=== PATIENT | female | born 1995 | race Caucasian/White ===

== ENCOUNTER 2017-06-08 23:31 | Emergency (ER) | payer OTHER ==
[~2017-06-08] VITALS: Ht 154.9 cm; Wt 101.8 kg
[2017-06-08 23:36] VITALS: TEMP 36.9; Ht 154.9 cm; Wt 101.8 kg
[2017-06-09] MEDS ORDERED: KETOROLAC TROMETHAMINE 30 MG/ML VIAL IV STA (00:04)
[2017-06-09] MEDS ORDERED: SODIUM CHLORIDE 0.9% 1000ML 1,000 ML IV STA (00:04)
[2017-06-09] MEDS ORDERED: ONDANSETRON INJ 2 MG/ML 2 ML VIAL IV STA (00:04)
--- NOTE | 2017-06-09 00:05 | EMERGENCY ROOM VISIT NOTE ---
History Report prepared by Sapphire: Kaushal Dolan Under the Supervision of: Dr. Bradley Gallego M.D. First contact with patient: 23:55 Chief Complaint: ABDOMINAL PAIN Stated Complaint: STOMACH PAIN,SIDE AND BACK PAIN,CHILLS History of Present Illness The patient is a 21 year old female who presents to the Emergency Room with complaints of constant abdominal pain beginning a few days ago. The patient states that she is also experiencing back pain, bilateral flank pain, vomiting x2, nausea, and an increased frequency of urination. She notes that her flank pain is worse on the right side. She denies any diarrhea and leg edema. She reports that she is taking control but no other medication. The patient states that she has had a UTI before, but notes that her current symptoms do not feel similar. She denies any history of kidney stones, ovarian cysts, and recent trauma. She notes that her period just ended yesterday. Source of History: patient Onset: a few days ago Position: abdomen Timing: constant Associated Symptoms: + nausea, + vomiting, + back pain, + urinary symptoms ( increased frequency), No diarrhea Note: She also complains of bilateral flank pain that is worse on the right side. She denies any leg edema. Review of Systems See HPI for pertinent positives & negatives. A total of 10 systems reviewed and were otherwise negative. Past Medical & Surgical Medical Problems: (1) UTI (urinary tract infection) Family History No pertinent family history stated. Social History Smoking Status: Never Smoker Marital Status: single Occupation Status: student Current/Historical Medications Scheduled Control Pills ( Control Pills), 1 TAB PO DAILY Allergies Coded Allergies: No Known Allergies (Unverified , 06/09/17) Physical Exam Vital Signs Date Time Temp Pulse Resp B/P (MAP) Pulse Ox O2 Delivery O2 Flow Rate FiO2 06/09/17 01:44 90 18 131/71 99 06/08/17 23:36 36.9 101 18 152/90 100 Room Air Physical Exam GENERAL: Patient is uncomfortable appearing and in mild distress. HEENT: No acute trauma, normocephalic atraumatic, mucous membranes moist, no nasal congestion, no scleral icterus. NECK: No stridor, no adenopathy, no meningismus, trachea is midline. LUNGS: No dyspnea. Clear to auscultation and equal bilaterally. No wheeze, no rhonchi. HEART: Regular rate and rhythm. No murmurs, rubs, gallops appreciated. ABDOMEN: Soft, nontender, bowel sounds positive, no masses appreciated, no peritonitis. BACK: No midline tenderness, mild bilateral CVA tenderness to palpation. EXTREMITIES: Normal motion all extremities, no cyanosis, no edema. NEUROLOGIC: Alert and oriented, no acute motor or sensory deficits, no focal weakness, cranial nerves grossly intact. SKIN: No rash, no jaundice, no diaphoresis. Medical Decision & Procedures Laboratory Results 06/09/17 00:10 Red Blood Count 4.92, Mean Corpuscular Volume 72.4, Mean Corpuscular Hemoglobin 22.8, Mean Corpuscular Hemoglobin Concent 31.5, Mean Platelet Volume 9.4, Neutrophils (%) (Auto) 49.2, Lymphocytes (%) (Auto) 39.9, Monocytes (%) (Auto) 7.7, Eosinophils (%) (Auto) 2.8, Basophils (%) (Auto) 0.2, Neutrophils # (Auto) 4.76, Lymphocytes # (Auto) 3.86, Monocytes # (Auto) 0.74, Eosinophils # (Auto) 0.27, Basophils # (Auto) 0.02 06/09/17 00:10 Test 06/08/17 23:48 06/08/17 23:52 06/09/17 00:10 Urine Color YELLOW Urine Appearance CLEAR (CLEAR) Urine pH 7.0 (4.5-7.5) Urine Specific [place] 1.003 (1.000-1.030) Urine Protein NEG (NEG) Urine Glucose (UA) NEG (NEG) Urine Ketones NEG (NEG) Urine Occult Blood TRACE (NEG) Urine Nitrite NEG (NEG) Urine Bilirubin NEG (NEG) Urine Urobilinogen NEG (NEG) Urine Leukocyte Esterase NEG (NEG) Urine WBC (Auto) 0 /hpf (0-5) Urine RBC (Auto) 0-4 /hpf (0-4) Urine Hyaline Casts (Auto) 0 /lpf (0-5) Urine Epithelial Cells (Auto) 0-5 /lpf (0-5) Urine Bacteria (Auto) NEG (NEG) Urine Test NEG (NEG) White Blood Count 9.67 K/uL (4.8-10.8) Red Blood Count 4.92 M/uL (4.2-5.4) Hemoglobin 11.2 g/dL (12.0-16.0) Hematocrit 35.6 % (37-47) Mean Corpuscular Volume 72.4 fL (80-100) Mean Corpuscular Hemoglobin 22.8 pg (25-34) Mean Corpuscular Hemoglobin Concent 31.5 g/dl (32-36) Platelet Count 415 K/uL (130-400) Mean Platelet Volume 9.4 fL (7.4-10.4) Neutrophils (%) (Auto) 49.2 % Lymphocytes (%) (Auto) 39.9 % Monocytes (%) (Auto) 7.7 % Eosinophils (%) (Auto) 2.8 % Basophils (%) (Auto) 0.2 % Neutrophils # (Auto) 4.76 K/uL (1.4-6.5) Lymphocytes # (Auto) 3.86 K/uL (1.2-3.4) Monocytes # (Auto) 0.74 K/uL (0.11-0.59) Eosinophils # (Auto) 0.27 K/uL (0-0.5) Basophils # (Auto) 0.02 K/uL (0-0.2) RDW Standard Deviation 41.4 fL (36.4-46.3) RDW Coefficient of Variation 15.5 % (11.5-14.5) Immature Granulocyte % (Auto) 0.2 % Immature Granulocyte # (Auto) 0.02 K/uL (0.00-0.02) Anion Gap 8.0 mmol/L (3-11) Est Creatinine Clear Calc Drug Dose 125.0 ml/min Estimated GFR () 126.0 Estimated GFR (Non- 108.7 BUN/Creatinine Ratio 16.0 (10-20) Calcium Level 9.3 mg/dl (8.5-10.1) Total Bilirubin 0.2 mg/dl (0.2-1) Direct Bilirubin < 0.1 mg/dl (0-0.2) Aspartate Amino Transf (AST/SGOT) 26 U/L (15-37) Alanine Aminotransferase (ALT/SGPT) 32 U/L (12-78) Alkaline Phosphatase 62 U/L (45-117) Total Protein 8.5 gm/dl (6.4-8.2) Albumin 3.1 gm/dl (3.4-5.0) Lipase 184 U/L (73-393) Laboratory results as reviewed by me. Medications Administered Medications (Trade) Dose Ordered Sig/Libia Route Start Time Stop Time Status Last Admin Dose Admin Sodium Chloride 1,000 ml @ 999 mls/hr Q1H1M STAT IV 06/09/17 00:04 06/09/17 01:04 DC 06/09/17 00:18 999 MLS/HR Ketorolac Tromethamine (Toradol Inj) 30 mg NOW STAT IV 06/09/17 00:04 06/09/17 00:05 DC 06/09/17 00:17 30 MG Ondansetron HCl (Zofran Inj) 4 mg NOW STAT IV 06/09/17 00:04 06/09/17 00:05 DC 06/09/17 00:17 4 MG ED Course 2358: The patient was evaluated in room B2. A complete history and physical exam was performed. 0122: Reevaluated the patient. She is feeling better. She would like to go home and see how she is feeling over the next 24 hours. We discussed that this might still be appendicitis but will hold on CT after shared decision making. I advised her to start taking a multivitamin with iron. She has a followup appointment already scheduled. We discussed symptoms that would require an emergent return. She verbalized understanding and agreement. The patient is ready for discharge. Medical Decision Differential: Appendicitis, , PUD/Gastritis, Biliary Pathology, UTI, Pyelonephritis, Renal Colic, amongst other pathologies entertained. 21 yr old female arrives with complaint of bilateral abdominal pain radiating to flanks. Exam is benign and she is in no significant distress, even smiling/ laughing. No clear reason for frequent uop as she has clear urine. Not hyperglycemia. Labs benign. No fevers. With such soft abdomen, benign labs, and looking well I feel that risks ct outweigh benefits at this time for which she agrees. This may all be related to menstrual cramping but they will monitor closely at home. I advised multivitamin with iron for supplementation and she has known chronic anemia that she is not on anything for. She will be see second class welder for inflammatory issues and we even discussed taking Vit D supplementation as well if not in multivitamin. She is well appearing nand in no distress at time of dc and understands symptoms requiring RTED. Medication Reconcilliation Current Medication List: was personally reviewed by me Blood Pressure Screening Patient's blood pressure: Elevated blood pressure Blood pressure disposition: Referred to PCP Impression Primary Impression: Bilateral lower abdominal pain Additional Impression: Anemia Scribe Attestation The scribe's documentation has been prepared under my direction and personally reviewed by me in its entirety. I confirm that the note above accurately reflects all work, treatment, procedures, and medical decision making performed by me. Departure Information Dispostion Home / Self-Care Referrals Bharti Schulte M.D. (PCP) Forms HOME CARE DOCUMENTATION FORM, IMPORTANT VISIT INFORMATION Patient Instructions Abdominal Pain - [facility], My [facility] Health Problem Qualifiers
[2017-06-09] MEDS ORDERED: BCPILLS PO (00:20)
[2017-06-09 00:24] LABS: BASO % 0.2 %; BASO ABS # 0.02 K/uL (0-0.2); EOS % 2.8 %; EOS ABS # 0.27 K/uL (0-0.5); HEMATOCRIT 35.6 % (37-47); HEMOGLOBIN 11.2 g/dL (12.0-16.0); IG# 0.02 K/uL (0.00-0.02); LYMPH % 39.9 %; LYMPH ABS # 3.86 K/uL (1.2-3.4); MEAN CELL VOLUME 72.4 fL (80-100); MEAN CORPUSCULAR HEMOGLOBIN 22.8 pg (25-34); MEAN CORPUSCULAR HGB CONC 31.5 g/dl (32-36); MEAN PLATELET VOLUME 9.4 fL (7.4-10.4); MONO % 7.7 %; MONO ABS # 0.74 K/uL (0.11-0.59); NEUT % 49.2 %; NEUT ABS # 4.76 K/uL (1.4-6.5); PLATELET COUNT 415 K/uL (130-400); RED CELL DISTRIBUTION WIDTH CV 15.5 % (11.5-14.5); RED CELL DISTRIBUTION WIDTH SD 41.4 fL (36.4-46.3); WHITE BLOOD COUNT 9.67 K/uL (4.8-10.8)
[2017-06-09 00:46] LABS: ALBUMIN 3.1 gm/dl (3.4-5.0); ALT/SGPT 32 U/L (12-78); AST/SGOT 26 U/L (15-37); BLOOD UREA NITROGEN 12 mg/dl (7-18); CALCIUM 9.3 mg/dl (8.5-10.1); CARBON DIOXIDE 26 mmol/L (21-32); CREATININE 0.78 mg/dl (0.60-1.20); GLUCOSE 97 mg/dl (70-99); LIPASE 184 U/L (73-393); POTASSIUM 3.6 mmol/L (3.5-5.1); SODIUM 139 mmol/L (136-145)
[2017-06-09 00:50] LABS: ALKALINE PHOSPHATASE 62 U/L (45-117); TOTAL PROTEIN 8.5 gm/dl (6.4-8.2)
[2017-06-09 01:44] VITALS: BP 131/71; PULSE 90; O2SAT 99
== END 2017-06-09 01:44 | disposition home or self-care (01) ==
LOC: C.EDB 23:33
DX: R10.32 Left lower quadrant pain (principal); R10.31 Right lower quadrant pain; D64.9 Anemia, unspecified

== ENCOUNTER 2019-05-04 18:57 | Inpatient (IN) ==
[2019-05-04] MEDS ORDERED: OXYTOCIN 30 UNITS/500 ML BAG IV PRN (20:06)
--- NOTE | 2019-05-04 20:11 | History & Physical Report ---
Date of Service May 04, 2019 Assessment & Plan (1) Group B streptococcal carriage complicating : will treat with pcn (2) SROM (spontaneous rupture of membranes): Starting to contract so will expectantly managed for now. Pitocin if indicated. epidural on demand. Anticipate . History of Present Illness Chief Complaint: lof Primary Care Provider: Bharti Schulte MD Patient is a 23yof, with iup at 40 2/7 weeks by first trimester ultrasound for unknown lmp who presents to labor and delivery c/o gush of fluid, clear, at 5:30pm. Has been having some contractions. no vb. +fm. complicated by anemia. H/H at first visit . Was taking a gummi pnv then at 28 week v isit was 8.2/27.6. Was advised to take iron but it made her really constipated and nauseated, so then she switched over to flintstones for the last couple of months. Unfortunately did not have any f/u cbc or real workup. Initial indicies appear to be iron deficiency. h/h on 03/22 was 9.4/31.0. Maternal obesity. 32 week ultrasound 85% efw. labs--A+/ab-/ri/rprnr/hepb-/hiv-/gc/ct-/afp neg/ gbs positive/ 16 week gtt 118/ 28 week gtt 137/ 2 hr gtt nl Allergies Allergy/AdvReac Type Severity Reaction Status Date / Time No Known Drug Allergies Allergy Verified 05/03/19 13:04 Home Medications Home Medications Medication Instructions Recorded Confirmed Type PNV cmb#95-ferrous fumarate-FA 28 tab PO DAILY 05/04/19 05/04/19 History [] Patient History Medical History (Updated 05/04/19 @ 20:21 by Gill Pastor MD, FACOG) Acute hemiparesis resolved Anemia (Chronic) Elevated high sensitivity C-reactive protein Hx of concussion Lateral femoral cutaneous neuropathy Thyromegaly Surgical History (Updated 12/13/18 @ 11:51 by Eugenio López) H/O wisdom tooth extraction No pertinent past surgical history S/P ear surgery Family History (Updated 11/30/18 @ 07:12 by Adriana Sanchez) Other Adopted Social History Preferred Language: German Feels Safe at Home: Yes Smoking Status: Never smoker OB History g1--present 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
[2019-05-04 20:29] LABS: Hematocrit (blood only) 33.9 % (37-47); Hemoglobin 10.3 g/dL (12.0-16.0); Mean Corpuscular Hemoglobin 22.3 pg (25-34); Mean Corpuscular Volume 73.5 fL (80-100); Mean Platelet Volume 10.4 fL (7.4-10.4); Platelet Count 286 K/uL (130-400); RDW Coefficient of Variation 18.1 % (11.5-14.5); RDW Standard Deviation 48.8 fL (36.4-46.3); Red Blood Count 4.61 M/uL (4.2-5.4); White Blood Count 12.64 K/uL (4.8-10.8)
[2019-05-04] MEDS ORDERED: PENICILLIN G POTASSIUM 6 MU in DEXTROSE 5% 250 ML IV ONE (20:30)
[2019-05-04] MEDS: LACTATED RINGER'S 1,000 ML IV PRN (20:49)
--- NOTE | 2019-05-04 21:33 | Anesthesiology Consultation ---
Date of Service May 04, 2019 Assessment & Plan (1) Encounter for pre-operative examination: Chart Review Chart Review: Patient NOT seen in Pre Admission Testing and Acceptable Risk for Labor Epidural Consults Requested none ASA ASA3 Proposed Anesthesia Anesthesia Type: Labor Epidural Risk / Benefits Reviewed With: PT / POA / Parent / Guardian, Accepts Plan and Informed Consent Obtained History Height/Weight Height: 5 ft 2 in Weight: 112.945 kg Allergies Allergy/AdvReac Type Severity Reaction Status Date / Time No Known Drug Allergies Allergy Verified 05/03/19 13:04 Medications Home Medications Medication Instructions Recorded Confirmed Last Taken PNV cmb#95-ferrous fumarate-FA 28 tab PO DAILY 05/04/19 05/04/19 05/03/19 11:00 [] Active Medications Generic Name Dose Route Start Last Admin Trade Name Freq PRN Reason Stop Dose Admin Lactated Ringer's 1,000 mls @ 125 mls/hr 05/04/19 20:06 05/04/19 22:15 Lr IV 05/06/19 20:05 999 mls/hr .Q8H PRN Infusion L&D Protocol Protocol NPO Date Last Intake of Fluids: 05/04/19 Time Last Intake of Fluids: 21:27 Date Last Intake of Solids: 05/04/19 Time Last Intake of Solids: 15:30 Past Medical History Medical History Acute hemiparesis resolved Anemia (Chronic) Elevated high sensitivity C-reactive protein Hx of concussion Lateral femoral cutaneous neuropathy Thyromegaly Exercise / Class Metabolic Activity II 4-5 Yardwork/Stairs/Walk up hill Negative for chest pain or shortness of breath. Past Family History Family History Other Adopted Past Surgical History Surgical History H/O wisdom tooth extraction No pertinent past surgical history S/P ear surgery Past Anesthesia History No Hx of Anesthesia Complications and No Family Hx of Anesthesia Complications History of PONV No Hx of PONV and Hx of Motion Sickness Social History Smoking Status: Never smoker Hx Alcohol Use: No Hx Substance Use: No substance use type: does not use Review of Systems Patient denies history of abnormal bleeding or bleeding disorder. Patient denies active use of anticoagulants other than low dose aspirin. Hx of pinching sciatic nerve on right with temporary hemiparesis. Still gets numbness of the right leg. History of scoliosis Physical Exam Vital Signs Last Vital Signs Temp 36.9 C 05/04/19 20:53 Pulse 88 05/04/19 21:05 Resp 18 05/04/19 20:53 BP 139/87 05/04/19 21:05 Constitutional + morbidly obese ENMT Mouth: no TMJ abnormality and oral opening not small Thyromental Distance: > or= 3.5 Finger Breadths Mallampati Class: II Neck normal visual inspection; neck extension not limited Respiratory normal respiratory effort Auscultation: lungs clear to auscultation bilaterally Cardiovascular Rate/Rhythm: regular rate and regular rhythm Heart Sounds: no murmur Neurologic moves all extremities Motor/Sensory: no sensory deficit Psychiatric Orientation: alert and oriented x 3 Testing Laboratory Results 05/04/19 20:19
[2019-05-04 21:49] LABS: Mean Corpuscular Hgb Conc 30.4 g/dL (32-36)
[2019-05-04] MEDS ORDERED: fentaNYL citrate 100 MCG/2 ML VIAL ONE (22:10)
[2019-05-04] MEDS ORDERED: BUPIVACAINE 0.25% 30 ML VIAL ONE (22:10)
[2019-05-04] MEDS ORDERED: ePHEDrine sulfate 50 MG/ML AMP ONE (22:10)
[2019-05-04] MEDS ORDERED: fentaNYL 2MCG/ML ROPIV 1.25MG/ML 100 ML BAG EPI ONE (22:11)
[2019-05-04] MEDS ORDERED: NALOXONE HCL 0.4 MG/1 ML VIAL/CARP IV PRN (22:29)
[2019-05-04] MEDS ORDERED: ONDANSETRON INJ 2 MG/ML 2 ML VIAL IV PRN (22:29)
[2019-05-04] MEDS ORDERED: DiphenhydrAMINE HCL 50 MG/ML VIAL IV PRN (22:29)
[2019-05-04] MEDS ORDERED: NALOXONE HCL 1 MG in SODIUM CHLORIDE 0.9% 1000ML 1,000 ML IV PRN (22:29)
[2019-05-04] MEDS ORDERED: ePHEDrine sulfate 50 MG/ML AMP IV PRN (22:29)
[2019-05-04] MEDS ORDERED: fentaNYL 2MCG/ML ROPIV 1.25MG/ML 100 ML BAG EPI PRN (22:29)
[2019-05-04] MEDS ORDERED: NALBUPHINE HCL INJ 10 MG/ML AMP IV PRN (22:29)
--- NOTE | 2019-05-05 00:12 | Labor Progress Brief Note ---
Date of Service May 05, 2019 Subjective comfortable after epidural Assessment & Plan (1) SROM (spontaneous rupture of membranes): continue current management. fetus category one. Physical Exam Constitutional: WD/WN, vitals as above Psychiatric: A+Ox3, euthymic affect Genitourinary: cx--5/100/-2 toco--q3-5min efm--130s with mod variability, accels present , no decels Results & Data Vital Signs (Past 12 Hours) Vital Signs Temp Pulse Resp BP Pulse Ox 05/05/19 00:07 93 H 124/60 05/05/19 00:05 90 98 05/05/19 00:01 90 129/62 05/05/19 00:00 82 99 05/04/19 23:56 86 132/61 05/04/19 23:55 104 H 99 05/04/19 23:50 86 130/60 100 05/04/19 23:46 95 H 130/60 05/04/19 23:45 90 100 05/04/19 23:40 94 H 116/57 L 100 05/04/19 23:35 101 H 112/56 L 99 05/04/19 23:34 18 05/04/19 23:32 100 H 133/62 05/04/19 23:31 16 05/04/19 23:30 87 99 05/04/19 23:25 109 H 151/67 H 98 05/04/19 23:24 18 05/04/19 23:22 94 H 18 161/74 H 05/04/19 23:20 107 H 16 156/75 H 99 05/04/19 23:18 112 H 16 153/75 H 05/04/19 23:16 113 H 18 152/72 H 05/04/19 23:15 101 H 98 05/04/19 23:14 101 H 18 151/83 H 05/04/19 23:13 102 H 149/83 H 05/04/19 23:12 16 05/04/19 23:10 98 H 16 142/72 H 98 05/04/19 23:08 97 H 143/74 H 05/04/19 23:06 107 H 86 L 05/04/19 23:05 108 H 16 146/75 H 97 05/04/19 23:00 86 100 05/04/19 22:55 96 H 99 05/04/19 22:50 97 H 99 05/04/19 22:45 93 H 100 05/04/19 22:40 93 H 100 05/04/19 22:35 96 H 100 05/04/19 22:30 91 H 99 05/04/19 22:15 37.2 C 05/04/19 21:05 88 139/87 05/04/19 20:53 36.9 C 18
[2019-05-05] MEDS: CALCIUM CARBONATE 500 MG CHEWABLE TAB PO PRN ×2 (00:30→04:15)
[2019-05-05] MEDS: PENICILLIN G POTASSIUM 3 MU in DEXTROSE 5% 100 ML IV PRN ×2 (00:50→04:55)
--- NOTE | 2019-05-05 02:31 | Labor Progress Brief Note ---
Date of Service May 05, 2019 Subjective comfortable Assessment & Plan (1) SROM (spontaneous rupture of membranes): continue expectant management. fetus category one. (2) Group B streptococcal carriage complicating : has received two doses Physical Exam Constitutional: WD/WN, vitals as above Psychiatric: A+Ox3, euthymic affect Genitourinary: cx--7/100/-1, forebag ruptured toco-q 2-4 min efm--130s with mod variability, small accels, no decels Results & Data Vital Signs (Past 12 Hours) Vital Signs Temp Pulse Resp BP Pulse Ox 05/05/19 02:24 104 H 99 05/05/19 02:22 89 147/77 H 05/05/19 02:19 105 H 98 05/05/19 02:15 104 H 146/104 H 05/05/19 02:14 104 H 97 05/05/19 02:09 94 H 98 05/05/19 02:04 105 H 97 05/05/19 02:00 36.9 C 98 H 18 139/94 05/05/19 01:59 102 H 98 05/05/19 01:54 102 H 98 05/05/19 01:49 108 H 97 05/05/19 01:47 130 H 142/98 H 05/05/19 01:44 143 H 98 05/05/19 01:39 91 H 99 05/05/19 01:34 124 H 98 05/05/19 01:32 118 H 146/72 H 05/05/19 01:30 20 05/05/19 01:29 90 98 05/05/19 01:24 94 H 98 05/05/19 01:19 119 H 99 05/05/19 01:16 92 H 128/69 05/05/19 01:14 96 H 98 05/05/19 01:09 86 98 05/05/19 01:04 102 H 100 05/05/19 01:02 92 H 134/69 05/05/19 01:00 16 05/05/19 00:59 86 99 05/05/19 00:54 86 99 05/05/19 00:49 87 99 05/05/19 00:47 88 131/70 05/05/19 00:44 93 H 99 05/05/19 00:39 99 H 99 05/05/19 00:34 110 H 97 05/05/19 00:32 106 H 129/71 05/05/19 00:30 18 05/05/19 00:29 118 H 98 05/05/19 00:24 93 H 99 05/05/19 00:19 97 H 99 05/05/19 00:15 36.4 C L 93 H 146/79 H 05/05/19 00:11 96 H 148/76 H 05/05/19 00:07 93 H 124/60 05/05/19 00:05 90 98 05/05/19 00:01 90 129/62 05/05/19 00:00 82 16 99 05/04/19 23:56 86 132/61 05/04/19 23:55 104 H 18 99 05/04/19 23:50 86 18 130/60 100 05/04/19 23:46 95 H 18 130/60 05/04/19 23:45 90 100 05/04/19 23:40 94 H 16 116/57 L 100 05/04/19 23:35 101 H 112/56 L 99 05/04/19 23:34 18 05/04/19 23:32 100 H 133/62 05/04/19 23:31 16 05/04/19 23:30 87 99 05/04/19 23:25 109 H 151/67 H 98 05/04/19 23:24 18 05/04/19 23:22 94 H 18 161/74 H 05/04/19 23:20 107 H 16 156/75 H 99 05/04/19 23:18 112 H 16 153/75 H 05/04/19 23:16 113 H 18 152/72 H 05/04/19 23:15 101 H 98 05/04/19 23:14 101 H 18 151/83 H 05/04/19 23:13 102 H 149/83 H 05/04/19 23:12 16 05/04/19 23:10 98 H 16 142/72 H 98 05/04/19 23:08 97 H 143/74 H 05/04/19 23:06 107 H 86 L 05/04/19 23:05 108 H 16 146/75 H 97 05/04/19 23:00 86 100 05/04/19 22:55 96 H 99 05/04/19 22:50 97 H 99 05/04/19 22:45 93 H 100 05/04/19 22:40 93 H 100 05/04/19 22:35 96 H 100 05/04/19 22:30 91 H 99 05/04/19 22:15 37.2 C 05/04/19 21:05 88 139/87 05/04/19 20:53 36.9 C 18
[2019-05-05] MEDS: LACTATED RINGER'S 1,000 ML IV PRN (03:21)
--- NOTE | 2019-05-05 05:04 | Labor Progress Brief Note ---
Date of Service May 05, 2019 Subjective comfortable Assessment & Plan (1) SROM (spontaneous rupture of membranes): fetus category one. making good progress. Physical Exam Constitutional: WD/WN, vitals as above Psychiatric: A+Ox3, euthymic affect Genitourinary: cx--rim/100/0 toco--q2-4min efm--150s with mod variability, small accels, no decels Results & Data Vital Signs (Past 12 Hours) Vital Signs Temp Pulse Resp BP Pulse Ox 05/05/19 05:00 125 H 134/67 05/05/19 04:59 140 H 98 05/05/19 04:54 123 H 96 05/05/19 04:49 105 H 96 05/05/19 04:46 104 H 129/61 05/05/19 04:44 113 H 96 05/05/19 04:39 103 H 95 05/05/19 04:34 110 H 96 05/05/19 04:30 108 H 18 136/72 05/05/19 04:29 98 H 97 05/05/19 04:24 107 H 98 05/05/19 04:20 117 H 141/77 H 05/05/19 04:19 110 H 98 05/05/19 04:17 104 H 159/89 H 05/05/19 04:15 37.9 C H 05/05/19 04:14 108 H 98 05/05/19 04:09 101 H 97 05/05/19 04:07 106 H 153/85 H 05/05/19 04:04 102 H 97 05/05/19 04:01 101 H 168/77 H 05/05/19 04:00 18 05/05/19 03:59 98 H 97 05/05/19 03:54 110 H 96 05/05/19 03:49 112 H 97 05/05/19 03:45 103 H 143/75 H 05/05/19 03:44 109 H 97 05/05/19 03:39 100 H 96 05/05/19 03:34 98 H 96 05/05/19 03:31 97 H 140/72 05/05/19 03:30 16 05/05/19 03:29 98 H 97 05/05/19 03:24 107 H 98 05/05/19 03:19 115 H 96 05/05/19 03:16 97 H 143/75 H 05/05/19 03:14 110 H 97 05/05/19 03:09 91 H 97 05/05/19 03:04 93 H 97 05/05/19 03:00 92 H 16 148/81 H 05/05/19 02:59 98 H 97 05/05/19 02:54 96 H 97 05/05/19 02:49 93 H 98 05/05/19 02:46 99 H 139/79 05/05/19 02:44 111 H 98 05/05/19 02:39 107 H 98 05/05/19 02:34 125 H 100 05/05/19 02:32 98 H 141/79 H 05/05/19 02:30 18 05/05/19 02:29 114 H 98 05/05/19 02:24 104 H 99 05/05/19 02:22 89 147/77 H 05/05/19 02:19 105 H 98 05/05/19 02:15 104 H 146/104 H 05/05/19 02:14 104 H 97 05/05/19 02:09 94 H 98 05/05/19 02:04 105 H 97 05/05/19 02:00 36.9 C 98 H 18 139/94 05/05/19 01:59 102 H 98 05/05/19 01:54 102 H 98 05/05/19 01:49 108 H 97 05/05/19 01:47 130 H 142/98 H 05/05/19 01:44 143 H 98 05/05/19 01:39 91 H 99 05/05/19 01:34 124 H 98 05/05/19 01:32 118 H 146/72 H 05/05/19 01:30 20 05/05/19 01:29 90 98 05/05/19 01:24 94 H 98 05/05/19 01:19 119 H 99 05/05/19 01:16 92 H 128/69 05/05/19 01:14 96 H 98 05/05/19 01:09 86 98 05/05/19 01:04 102 H 100 05/05/19 01:02 92 H 134/69 05/05/19 01:00 16 05/05/19 00:59 86 99 05/05/19 00:54 86 99 05/05/19 00:49 87 99 05/05/19 00:47 88 131/70 05/05/19 00:44 93 H 99 05/05/19 00:39 99 H 99 05/05/19 00:34 110 H 97 05/05/19 00:32 106 H 129/71 05/05/19 00:30 18 05/05/19 00:29 118 H 98 05/05/19 00:24 93 H 99 05/05/19 00:19 97 H 99 05/05/19 00:15 36.4 C L 93 H 146/79 H 05/05/19 00:11 96 H 148/76 H 05/05/19 00:07 93 H 124/60 05/05/19 00:05 90 98 05/05/19 00:01 90 129/62 05/05/19 00:00 82 16 99 05/04/19 23:56 86 132/61 05/04/19 23:55 104 H 18 99 05/04/19 23:50 86 18 130/60 100 05/04/19 23:46 95 H 18 130/60 05/04/19 23:45 90 100 05/04/19 23:40 94 H 16 116/57 L 100 05/04/19 23:35 101 H 112/56 L 99 05/04/19 23:34 18 05/04/19 23:32 100 H 133/62 05/04/19 23:31 16 05/04/19 23:30 87 99 05/04/19 23:25 109 H 151/67 H 98 05/04/19 23:24 18 05/04/19 23:22 94 H 18 161/74 H 05/04/19 23:20 107 H 16 156/75 H 99 05/04/19 23:18 112 H 16 153/75 H 05/04/19 23:16 113 H 18 152/72 H 05/04/19 23:15 101 H 98 05/04/19 23:14 101 H 18 151/83 H 05/04/19 23:13 102 H 149/83 H 05/04/19 23:12 16 05/04/19 23:10 98 H 16 142/72 H 98 05/04/19 23:08 97 H 143/74 H 05/04/19 23:06 107 H 86 L 05/04/19 23:05 108 H 16 146/75 H 97 01/15/20 23:00 86 100 05/04/19 22:55 96 H 99 05/04/19 22:50 97 H 99 05/04/19 22:45 93 H 100 05/04/19 22:40 93 H 100 05/04/19 22:35 96 H 100 05/04/19 22:30 91 H 99 05/04/19 22:15 37.2 C 05/04/19 21:05 88 139/87 05/04/19 20:53 36.9 C 18
[2019-05-05] MEDS ORDERED: CEFAZOLIN 2000MG 2,000 MG/15 ML SYR IV ONE (05:45)
--- NOTE | 2019-05-05 07:08 | Labor Progress Brief Note ---
Date of Service May 05, 2019 Subjective noting some pressure Assessment & Plan (1) SROM (spontaneous rupture of membranes): recheck in one hour. Fetus reassuring. Physical Exam Constitutional: WD/WN, vitals as above Psychiatric: A+Ox3, euthymic affect Genitourinary: cx--post lip toco--q2-3min efm--150s with mod variability, accels tp 170s, no decels Results & Data Vital Signs (Past 12 Hours) Vital Signs Temp Pulse Resp BP Pulse Ox 05/05/19 07:04 124 H 95 05/05/19 07:01 120 H 123/103 H 05/05/19 06:59 124 H 97 05/05/19 06:54 135 H 96 05/05/19 06:49 118 H 96 05/05/19 06:48 115 H 94 05/05/19 06:46 117 H 126/60 05/05/19 06:44 116 H 95 05/05/19 06:43 107 H 94 05/05/19 06:39 111 H 95 05/05/19 06:35 113 H 94 05/05/19 06:34 113 H 94 05/05/19 06:30 118 H 16 126/58 L 05/05/19 06:29 107 H 95 05/05/19 06:26 106 H 94 05/05/19 06:24 108 H 95 05/05/19 06:19 106 H 95 05/05/19 06:16 106 H 124/58 L 05/05/19 06:14 106 H 96 05/05/19 06:09 113 H 95 05/05/19 06:04 112 H 96 05/05/19 06:00 122 H 18 123/58 L 05/05/19 05:59 107 H 97 05/05/19 05:54 136 H 97 05/05/19 05:49 111 H 97 05/05/19 05:45 113 H 125/60 05/05/19 05:44 107 H 96 05/05/19 05:39 103 H 97 05/05/19 05:34 112 H 97 05/05/19 05:32 110 H 129/57 L 05/05/19 05:30 20 05/05/19 05:29 106 H 97 05/05/19 05:24 117 H 97 05/05/19 05:20 36.8 C 127 H 20 121/57 L 05/05/19 05:19 123 H 97 05/05/19 05:14 139 H 97 05/05/19 05:09 104 H 96 05/05/19 05:04 112 H 97 05/05/19 05:00 125 H 16 134/67 05/05/19 04:59 140 H 98 05/05/19 04:54 123 H 96 05/05/19 04:49 105 H 96 05/05/19 04:46 104 H 129/61 05/05/19 04:44 113 H 96 05/05/19 04:39 103 H 95 05/05/19 04:34 110 H 96 05/05/19 04:30 108 H 18 136/72 05/05/19 04:29 98 H 97 05/05/19 04:24 107 H 98 05/05/19 04:20 117 H 141/77 H 05/05/19 04:19 110 H 98 05/05/19 04:17 104 H 159/89 H 05/05/19 04:15 37.9 C H 05/05/19 04:14 108 H 98 05/05/19 04:09 101 H 97 05/05/19 04:07 106 H 153/85 H 05/05/19 04:04 102 H 97 05/05/19 04:01 101 H 168/77 H 05/05/19 04:00 18 05/05/19 03:59 98 H 97 05/05/19 03:54 110 H 96 05/05/19 03:49 112 H 97 05/05/19 03:45 103 H 143/75 H 05/05/19 03:44 109 H 97 05/05/19 03:39 100 H 96 05/05/19 03:34 98 H 96 05/05/19 03:31 97 H 140/72 05/05/19 03:30 16 05/05/19 03:29 98 H 97 05/05/19 03:24 107 H 98 05/05/19 03:19 115 H 96 05/05/19 03:16 97 H 143/75 H 05/05/19 03:14 110 H 97 05/05/19 03:09 91 H 97 05/05/19 03:04 93 H 97 05/05/19 03:00 92 H 16 148/81 H 05/05/19 02:59 98 H 97 05/05/19 02:54 96 H 97 05/05/19 02:49 93 H 98 05/05/19 02:46 99 H 139/79 05/05/19 02:44 111 H 98 05/05/19 02:39 107 H 98 05/05/19 02:34 125 H 100 05/05/19 02:32 98 H 141/79 H 05/05/19 02:30 18 05/05/19 02:29 114 H 98 05/05/19 02:24 104 H 99 05/05/19 02:22 89 147/77 H 05/05/19 02:19 105 H 98 05/05/19 02:15 104 H 146/104 H 05/05/19 02:14 104 H 97 05/05/19 02:09 94 H 98 05/05/19 02:04 105 H 97 05/05/19 02:00 36.9 C 98 H 18 139/94 05/05/19 01:59 102 H 98 05/05/19 01:54 102 H 98 05/05/19 01:49 108 H 97 05/05/19 01:47 130 H 142/98 H 05/05/19 01:44 143 H 98 05/05/19 01:39 91 H 99 05/05/19 01:34 124 H 98 05/05/19 01:32 118 H 146/72 H 05/05/19 01:30 20 05/05/19 01:29 90 98 05/05/19 01:24 94 H 98 05/05/19 01:19 119 H 99 05/05/19 01:16 92 H 128/69 05/05/19 01:14 96 H 98 05/05/19 01:09 86 98 05/05/19 01:04 102 H 100 05/05/19 01:02 92 H 134/69 05/05/19 01:00 16 05/05/19 00:59 86 99 05/05/19 00:54 86 99 05/05/19 00:49 87 99 05/05/19 00:47 88 131/70 05/05/19 00:44 93 H 99 05/05/19 00:39 99 H 99 05/05/19 00:34 110 H 97 05/05/19 00:32 106 H 129/71 05/05/19 00:30 18 05/05/19 00:29 118 H 98 05/05/19 00:24 93 H 99 05/05/19 00:19 97 H 99 05/05/19 00:15 36.4 C L 93 H 146/79 H 05/05/19 00:11 96 H 148/76 H 05/05/19 00:07 93 H 124/60 05/05/19 00:05 90 98 05/05/19 00:01 90 129/62 05/05/19 00:00 82 16 99 05/04/19 23:56 86 132/61 05/04/19 23:55 104 H 18 99 05/04/19 23:50 86 18 130/60 100 05/04/19 23:46 95 H 18 130/60 05/04/19 23:45 90 100 05/04/19 23:40 94 H 16 116/57 L 100 05/04/19 23:35 101 H 112/56 L 99 05/04/19 23:34 18 05/04/19 23:32 100 H 133/62 05/04/19 23:31 16 05/04/19 23:30 87 99 05/04/19 23:25 109 H 151/67 H 98 05/04/19 23:24 18 05/04/19 23:22 94 H 18 161/74 H 05/04/19 23:20 107 H 16 156/75 H 99 05/04/19 23:18 112 H 16 153/75 H 05/04/19 23:16 113 H 18 152/72 H 05/04/19 23:15 101 H 98 05/04/19 23:14 101 H 18 151/83 H 05/04/19 23:13 102 H 149/83 H 05/04/19 23:12 16 05/04/19 23:10 98 H 16 142/72 H 98 05/04/19 23:08 97 H 143/74 H 05/04/19 23:06 107 H 86 L 05/04/19 23:05 108 H 16 146/75 H 97 05/04/19 23:00 86 100 05/04/19 22:55 96 H 99 05/04/19 22:50 97 H 99 05/04/19 22:45 93 H 100 05/04/19 22:40 93 H 100 05/04/19 22:35 96 H 100 05/04/19 22:30 91 H 99 05/04/19 22:15 37.2 C 05/04/19 21:05 88 139/87 05/04/19 20:53 36.9 C 18
[2019-05-05] MEDS ORDERED: ACETAMINOPHEN 325 MG TAB PO ONE (07:25)
[2019-05-05] MEDS ORDERED: ACETAMINOPHEN 325 MG TAB ONE (07:25)
--- NOTE | 2019-05-05 08:14 | Labor Progress Brief Note ---
Date of Service May 05, 2019 Subjective pressure Assessment & Plan (1) SROM (spontaneous rupture of membranes): Will start pushing. Fetus reassuring. Physical Exam Genitourinary: cx--c/c/+1 toco--q2-4min efm--150s wtih mod variabiltiy, accels preesnt 180s, no decels. Results & Data Vital Signs (Past 12 Hours) Vital Signs Temp Pulse Resp BP Pulse Ox 05/05/19 07:14 116 H 96 05/05/19 07:09 116 H 97 05/05/19 07:06 122 H 129/65 05/05/19 07:04 124 H 95 05/05/19 07:01 120 H 123/103 H 05/05/19 07:00 16 05/05/19 06:59 124 H 97 05/05/19 06:54 135 H 96 05/05/19 06:49 118 H 96 05/05/19 06:48 115 H 94 05/05/19 06:46 117 H 126/60 05/05/19 06:44 116 H 95 05/05/19 06:43 107 H 94 05/05/19 06:39 111 H 95 05/05/19 06:35 113 H 94 05/05/19 06:34 113 H 94 05/05/19 06:30 118 H 16 126/58 L 05/05/19 06:29 107 H 95 05/05/19 06:26 106 H 94 05/05/19 06:24 108 H 95 05/05/19 06:19 106 H 95 05/05/19 06:16 106 H 124/58 L 05/05/19 06:14 106 H 96 05/05/19 06:09 113 H 95 05/05/19 06:04 112 H 96 05/05/19 06:00 122 H 18 123/58 L 05/05/19 05:59 107 H 97 05/05/19 05:54 136 H 97 05/05/19 05:49 111 H 97 05/05/19 05:45 113 H 125/60 05/05/19 05:44 107 H 96 05/05/19 05:39 103 H 97 05/05/19 05:34 112 H 97 05/05/19 05:32 110 H 129/57 L 05/05/19 05:30 20 05/05/19 05:29 106 H 97 05/05/19 05:24 117 H 97 05/05/19 05:20 36.8 C 127 H 20 121/57 L 05/05/19 05:19 123 H 97 05/05/19 05:14 139 H 97 05/05/19 05:09 104 H 96 05/05/19 05:04 112 H 97 05/05/19 05:00 125 H 16 134/67 05/05/19 04:59 140 H 98 05/05/19 04:54 123 H 96 05/05/19 04:49 105 H 96 05/05/19 04:46 104 H 129/61 05/05/19 04:44 113 H 96 05/05/19 04:39 103 H 95 05/05/19 04:34 110 H 96 05/05/19 04:30 108 H 18 136/72 05/05/19 04:29 98 H 97 05/05/19 04:24 107 H 98 05/05/19 04:20 117 H 141/77 H 05/05/19 04:19 110 H 98 05/05/19 04:17 104 H 159/89 H 05/05/19 04:15 37.9 C H 05/05/19 04:14 108 H 98 05/05/19 04:09 101 H 97 05/05/19 04:07 106 H 153/85 H 05/05/19 04:04 102 H 97 05/05/19 04:01 101 H 168/77 H 05/05/19 04:00 18 05/05/19 03:59 98 H 97 05/05/19 03:54 110 H 96 05/05/19 03:49 112 H 97 05/05/19 03:45 103 H 143/75 H 05/05/19 03:44 109 H 97 05/05/19 03:39 100 H 96 05/05/19 03:34 98 H 96 05/05/19 03:31 97 H 140/72 05/05/19 03:30 16 05/05/19 03:29 98 H 97 05/05/19 03:24 107 H 98 05/05/19 03:19 115 H 96 05/05/19 03:16 97 H 143/75 H 05/05/19 03:14 110 H 97 05/05/19 03:09 91 H 97 05/05/19 03:04 93 H 97 05/05/19 03:00 92 H 16 148/81 H 05/05/19 02:59 98 H 97 05/05/19 02:54 96 H 97 05/05/19 02:49 93 H 98 05/05/19 02:46 99 H 139/79 05/05/19 02:44 111 H 98 05/05/19 02:39 107 H 98 05/05/19 02:34 125 H 100 05/05/19 02:32 98 H 141/79 H 05/05/19 02:30 18 05/05/19 02:29 114 H 98 05/05/19 02:24 104 H 99 05/05/19 02:22 89 147/77 H 05/05/19 02:19 105 H 98 05/05/19 02:15 104 H 146/104 H 05/05/19 02:14 104 H 97 05/05/19 02:09 94 H 98 05/05/19 02:04 105 H 97 05/05/19 02:00 36.9 C 98 H 18 139/94 05/05/19 01:59 102 H 98 05/05/19 01:54 102 H 98 05/05/19 01:49 108 H 97 05/05/19 01:47 130 H 142/98 H 05/05/19 01:44 143 H 98 05/05/19 01:39 91 H 99 05/05/19 01:34 124 H 98 05/05/19 01:32 118 H 146/72 H 05/05/19 01:30 20 05/05/19 01:29 90 98 05/05/19 01:24 94 H 98 05/05/19 01:19 119 H 99 05/05/19 01:16 92 H 128/69 05/05/19 01:14 96 H 98 05/05/19 01:09 86 98 05/05/19 01:04 102 H 100 05/05/19 01:02 92 H 134/69 05/05/19 01:00 16 05/05/19 00:59 86 99 05/05/19 00:54 86 99 05/05/19 00:49 87 99 05/05/19 00:47 88 131/70 01/16/20 00:44 93 H 99 05/05/19 00:39 99 H 99 05/05/19 00:34 110 H 97 05/05/19 00:32 106 H 129/71 05/05/19 00:30 18 05/05/19 00:29 118 H 98 05/05/19 00:24 93 H 99 05/05/19 00:19 97 H 99 05/05/19 00:15 36.4 C L 93 H 146/79 H 05/05/19 00:11 96 H 148/76 H 05/05/19 00:07 93 H 124/60 05/05/19 00:05 90 98 05/05/19 00:01 90 129/62 05/05/19 00:00 82 16 99 05/04/19 23:56 86 132/61 05/04/19 23:55 104 H 18 99 05/04/19 23:50 86 18 130/60 100 05/04/19 23:46 95 H 18 130/60 05/04/19 23:45 90 100 05/04/19 23:40 94 H 16 116/57 L 100 05/04/19 23:35 101 H 112/56 L 99 05/04/19 23:34 18 05/04/19 23:32 100 H 133/62 05/04/19 23:31 16 05/04/19 23:30 87 99 05/04/19 23:25 109 H 151/67 H 98 05/04/19 23:24 18 05/04/19 23:22 94 H 18 161/74 H 05/04/19 23:20 107 H 16 156/75 H 99 05/04/19 23:18 112 H 16 153/75 H 05/04/19 23:16 113 H 18 152/72 H 05/04/19 23:15 101 H 98 05/04/19 23:14 101 H 18 151/83 H 05/04/19 23:13 102 H 149/83 H 05/04/19 23:12 16 05/04/19 23:10 98 H 16 142/72 H 98 05/04/19 23:08 97 H 143/74 H 05/04/19 23:06 107 H 86 L 05/04/19 23:05 108 H 16 146/75 H 97 05/04/19 23:00 86 100 05/04/19 22:55 96 H 99 05/04/19 22:50 97 H 99 05/04/19 22:45 93 H 100 05/04/19 22:40 93 H 100 05/04/19 22:35 96 H 100 05/04/19 22:30 91 H 99 05/04/19 22:15 37.2 C 05/04/19 21:05 88 139/87 05/04/19 20:53 36.9 C 18
[2019-05-05] MEDS ORDERED: ACETAMINOPHEN 325 MG TAB PO PRN (10:47)
[2019-05-05] MEDS ORDERED: HYDROCORTISONE ACETATE 25 MG SUPP PR PRN (10:47)
[2019-05-05] MEDS ORDERED: DIPHTHERIA/TETANUS/PERTUSSIS 0.5 ML SYR/VIAL IM ONE (10:47)
[2019-05-05] MEDS ORDERED: BENZOCAINE 20% AER SPR 82.5 GM CAN EXT PRN (10:47)
[2019-05-05] MEDS ORDERED: bisacodyL 10 MG SUPP PR PRN (10:47)
[2019-05-05] MEDS ORDERED: OXYTOCIN 30 UNITS/500 ML BAG IV PRN (10:47)
[2019-05-05] MEDS ORDERED: SUPERCREAM 0.870% 15 GM JAR EXT PRN (10:47)
--- NOTE | 2019-05-05 11:27 | Delivery Summary ---
DATE OF OPERATION: 05/05/2019 PROCEDURE: Normal spontaneous vaginal delivery first degree and right labial laceration repairs. SURGEON: Rashawn Saha MD PREOPERATIVE DIAGNOSES: 1. Single intrauterine at 40 weeks 2 days gestational age. 2. Spontaneous rupture of membranes and labor. 3. Moderate anemia. 4. BMI of 45. 5. Group B streptococcus positive. POSTOPERATIVE DIAGNOSES: 1. Single intrauterine at 40 weeks 2 days gestational age. 2. Spontaneous rupture of membranes and labor. 3. Moderate anemia. 4. BMI of 45. 5. Group B streptococcus positive. 6. Status post delivery. ESTIMATED BLOOD LOSS: 300 mL. DRAINS: None. FLUIDS: Continuous lactated ringer. URINE OUTPUT: Not measured. COMPLICATIONS: None. FINDINGS: Viable female with weight pending and Apgars of 8 and 9 at 1 and 5 minutes respectively. DESCRIPTION OF PROCEDURE: The patient progressed to 10 cm dilated, 100% effaced, +2 station, at which time she felt the urge to push. The patient pushed for approximately 2 hours to achieve delivery. The patient pushed over intact perineum with epidural anesthesia and delivered a viable with weight and Apgars as noted above. The head of the delivered in MALOU position, rest into right transverse. Nuchal cord x1 was noted which was easily reduced. Body and shoulders quickly followed. was noted to be vigorous soon after delivery and a 1-minute delayed cord clamping was initiated. The cord was then double clamped and cut and were returned to remain on maternal abdomen and cord. Cord blood was then obtained. Attention was then turned to deliver the placenta, which was delivered intact, 3-vessel cord, gentle cord traction. On inspection of perineum, vagina, and cervix, there was noted to be first-degree perineal laceration and a small right labial laceration. The perineal laceration which was repaired with 3-0 Vicryl and continuous running locked stitch. The right labial laceration repaired with 3-0 Vicryl and interrupted stitch. Needle, sponge and instrument counts were correct at the completion of the case. Both mother and were stable in the immediate post-delivery. I attest to the content of the Intraoperative Record and any orders documented therein. Any exception s are noted below.
--- NOTE | 2019-05-05 11:30 | Anesthesia Procedure Note ---
Date of Service May 05, 2019 Anesthesia Post Epidural Note Vital Signs Vital Signs: Temp Pulse Resp BP Pulse Ox 36.9 C 103 H 20 115/58 L 97 05/05/19 10:13 05/05/19 11:17 05/05/19 10:45 05/05/19 11:17 05/05/19 10:34 Pain Intensity Abdomen: Pain Intensity: 0 Notes Mental Status: alert / awake / arousable and participated in evaluation Patient Amnestic to Procedure: No Nausea / Vomiting: adequately controlled Pain: adequately controlled Airway Patency, RR, SpO2: stable & adequate BP & HR: stable & adequate Hydration State: stable & adequate Neuraxial Anesthesia: was administered and sensory block is resolving Anesthetic Complications: no major complications apparent and Pt Satisfied with anesthetic care Epidural: Removed without complications and With tip intact
[2019-05-05] MEDS: DOCUSATE SODIUM 100 MG CAP PO SCH (23:21)
--- NOTE | 2019-05-06 06:14 | Obstetrical Progress Note ---
Date of Service <Caryn Choi DO - Last Filed: 05/06/19 07:16> May 06, 2019 Assessment & Plan <Caryn Choi DO - Last Filed: 05/06/19 07:16> (1) Encounter for care and examination after delivery: 23 yo F PPD #1 following vaginal delivery at 40.3weeks, doing well and with complaints of left calf tenderness this AM. - PPD #1 - Feels well, ambulating well, voiding well. - Will continue routine care. - US LLE ordered to rule out DVT. Pt without shortness of breath or chest pain. - Following d/c will have f/u in 6 weeks. Subjective <Caryn Choi - Last Filed: 05/06/19 07:16> Brittany is a 23 yo female ; PPD # 1 following vaginal delivery at 40.3weeks; doing well this AM; no abdominal cramping/pain; voiding well; tolerating meals overnight, able to ambulate some within the room. Some persistent spotting this morning but improved from yesterday. Complaints of left calf tenderness. No shortness of breath or chest pain. Review of Systems Constitutional: denies fever, chills, sweats, headache Respiratory: denies SOB, difficulty breathing Cardiac: denies CP, chest palpitations, chest pressure Breast: denies breast pain : denies dysuria Physical Exam <Caryn Choi DO - Last Filed: 05/06/19 07:16> General: patient is alert and oriented, in NAD Cardiac: +S1/S2, no murmurs rubs or gallops Respiratory: lungs CTA b/l, anteriorly and posteriorly, no wheezes rales or rhonchi, no increased work of breathing, symmetric chest rise, no respiratory distress Abdomen: soft, NT, +bowel sounds Uterus: uterine fundus firm, palpable below the level of the umbilicus Lower Extremities: no LE edema or swelling, some left calf pain to palpation, Froilan's sign negative b/l Results & Data <Caryn Choi - Last Filed: 05/06/19 07:16> Vital Signs (Past 12 Hours) Vital Signs Temp Pulse Resp BP Pulse Ox 05/06/19 04:05 37 C 82 14 129/80 98 05/05/19 23:15 37.1 C 90 16 128/74 98 05/05/19 20:20 37.1 C 99 H 16 143/85 H 98 Laboratory Results Laboratory Results - last 24 hr 05/06/19 06:48 Hgb Pending Hct Pending Medications Administered Current Medications Acetaminophen (Tylenol) 650 mg PO Q6H PRN PRN Reason: Pain/MARSHALL/Fever Stop: 06/04/19 10:46 Benzocaine (Dermoplast Pain Relieving [place]) 1 appln EXT PRN PRN PRN Reason: Perineal Discomfort Stop: 06/04/19 10:46 Last Admin: 05/05/19 13:05 Dose: 1 appln Documented by: Bisacodyl (Dulcolax) 5 mg PO 1999 [facility] Stop: 05/06/19 20:01 Bisacodyl (Dulcolax) 10 mg [place] DAILY PRN PRN Reason: No BM on 2nd post- day Stop: 06/04/19 10:46 Calcium Carbonate (Tums) 500 mg PO Q4 PRN PRN Reason: Indigestion Stop: 06/04/19 00:11 Last Admin: 05/05/19 04:15 Dose: 500 mg Documented by: Cocaine HCl (Supercream 0.870%) 1 gm EXT BID PRN PRN Reason: Hemorrhoidal Inflammation Stop: 05/19/19 10:46 Docusate Sodium (Colace) 100 mg PO DAILY@08,21 [facility] Stop: 06/04/19 20:59 Last Admin: 05/05/19 23:21 Dose: 100 mg Documented by: Hydrocortisone (Anusol Hc) 25 mg [place] BID PRN PRN Reason: Hemorrhoidal Inflammation Stop: 06/04/19 10:46 Lactated Ringer's (Lr) 1,000 mls @ 125 mls/hr IV .Q8H PRN; Protocol PRN Reason: L&D Protocol Stop: 05/06/19 20:05 Last Admin: 05/05/19 03:21 Dose: 125 mls/hr Documented by: Oxytocin (Pitocin) 30 units in 500 mls @ 333.333 mls/hr IV .Q1H30M PRN; Protocol PRN Reason: Bleeding Control Stop: 06/03/19 20:05 Last Admin: 05/05/19 10:40 Dose: 59.94 units/hr, 999 mls/hr Documented by: Oxytocin (Pitocin) 30 units in 500 mls @ 333.333 mls/hr IV .Q1H30M PRN; Protocol PRN Reason: Bleeding Control Stop: 06/04/19 10:46 Ibuprofen (Motrin) 600 mg PO Q4H PRN PRN Reason: Pain/MARSHALL/Cramping/Fever Stop: 06/04/19 10:46 Prenat Multivit/[place]/Iron/Folic Ac ( Vitamin) 1 tab PO DAILY@08 [facility] Stop: 06/05/19 07:59 <Rashawn Saha MD - Last Filed: 05/06/19 07:46> Co-Signing Physician Notes Patient seen and evaluated and agree with the above findings and plan. Continue routine care Resident Activity Tracking <Caryn Choi DO - Last Filed: 05/06/19 07:16> Resident Involvement: Resident Care Provided Care Provided: OB Delivery
[2019-05-06 07:12] LABS: Hematocrit (blood only) 29.6 % (37-47)
[2019-05-06] MEDS ORDERED: PRENATAL VITAMIN 1 TAB PO SCH (08:00)
[2019-05-06] MEDS: IBUPROFEN 600 MG TAB PO PRN ×2 (08:15→19:51)
[2019-05-06] MEDS: DOCUSATE SODIUM 100 MG CAP PO SCH ×2 (08:15→19:51)
--- NOTE | 2019-05-06 08:51 | Ultrasound Report ---
US venous doppler LE LT CLINICAL HISTORY: calf pain COMPARISON STUDY: No previous studies for comparison. FINDINGS: Real-time and color flow Doppler imaging were performed. Flow was seen within the femoral, popliteal and calf veins with no intraluminal thrombus demonstrated. The saphenous vein is patent. IMPRESSION: No evidence of left lower extremity DVT. ACT 112: Negative or not required by law. Electronically signed by: Alec Elliott M.D. 05/06/2019 8:50 AM
[2019-05-06] MEDS ORDERED: bisacodyL 5 MG TABEC PO SCH (20:00)
[2019-05-06] MEDS ORDERED: Nursing to Pharmacy Communication ONE (20:05)
[2019-05-06] MEDS ORDERED: IBUPROFEN 200 MG/10 ML UDC PO PRN (20:13)
--- NOTE | 2019-05-07 06:22 | Obstetrical Progress Note ---
Date of Service <Caryn Choi - Last Filed: 05/07/19 07:13> May 07, 2019 Assessment & Plan <Caryn Choi - Last Filed: 05/07/19 07:13> (1) Encounter for care and examination after delivery: 23 yo F PPD #2 following vaginal delivery at 40.3weeks, doing well and with complaints of left calf tenderness this AM. - PPD #2 - Feels well, ambulating well, voiding well. - For discharge today. - Following d/c will have f/u in 6 weeks. - Went over discharge instructions and answered all patient questions. Subjective <Caryn Choi - Last Filed: 05/07/19 07:13> Brittany is a 29 yo female ; PPD # 2 following vaginal delivery at 40.3weeks; doing well this AM; no abdominal cramping/pain; voiding well; tolerating meals overnight, able to ambulate some within the room. Some persistent spotting this morning but improved from yesterday. Review of Systems Constitutional: denies fever, chills, sweats, headache Respiratory: denies SOB, difficulty breathing Cardiac: denies CP, chest palpitations, chest pressure Breast: denies breast pain : denies dysuria Physical Exam <Caryn Grosscecelia - Last Filed: 05/07/19 07:13> General: patient is alert and oriented, in NAD Cardiac: +S1/S2, no murmurs rubs or gallops Respiratory: lungs CTA b/l, anteriorly and posteriorly, no wheezes rales or rhonchi, no increased work of breathing, symmetric chest rise, no respiratory distress Abdomen: soft, NT, +bowel sounds Uterus: uterine fundus firm, palpable below the level of the umbilicus Lower Extremities: no LE edema or swelling, no deep calf pain, Froilan's sign negative b/l Results & Data <Caryn Grosscecelia - Last Filed: 05/07/19 07:13> Vital Signs (Past 12 Hours) Vital Signs Temp Pulse Resp BP Pulse Ox 05/06/19 23:00 36.9 C 75 18 126/80 97 05/06/19 19:45 36.5 C 80 18 121/78 99 Laboratory Results Laboratory Results - last 24 hr 05/06/19 06:48 Hgb 9.0 L Hct 29.6 L Medications Administered Current Medications Acetaminophen (Tylenol) 650 mg PO Q6H PRN PRN Reason: Pain/MARSHALL/Fever Stop: 06/04/19 10:46 Benzocaine (Dermoplast Pain Relieving [place]) 1 appln EXT PRN PRN PRN Reason: Perineal Discomfort Stop: 06/04/19 10:46 Last Admin: 05/05/19 13:05 Dose: 1 appln Documented by: Bisacodyl (Dulcolax) 10 mg [place] DAILY PRN PRN Reason: No BM on 2nd post- day Stop: 06/04/19 10:46 Calcium Carbonate (Tums) 500 mg PO Q4 PRN PRN Reason: Indigestion Stop: 06/04/19 00:11 Last Admin: 05/05/19 04:15 Dose: 500 mg Documented by: Cocaine HCl (Supercream 0.870%) 1 gm EXT BID PRN PRN Reason: Hemorrhoidal Inflammation Stop: 05/19/19 10:46 Docusate Sodium (Colace) 100 mg PO DAILY@08,21 [facility] Stop: 06/04/19 20:59 Last Admin: 05/06/19 19:51 Dose: 100 mg Documented by: Hydrocortisone (Anusol Hc) 25 mg [place] BID PRN PRN Reason: Hemorrhoidal Inflammation Stop: 06/04/19 10:46 Oxytocin (Pitocin) 30 units in 500 mls @ 333.333 mls/hr IV .Q1H30M PRN; Protocol PRN Reason: Bleeding Control Stop: 06/03/19 20:05 Last Admin: 05/05/19 10:40 Dose: 59.94 units/hr, 999 mls/hr Documented by: Oxytocin (Pitocin) 30 units in 500 mls @ 333.333 mls/hr IV .Q1H30M PRN; Protocol PRN Reason: Bleeding Control Stop: 06/04/19 10:46 Ibuprofen (Motrin) 600 mg PO Q4H PRN PRN Reason: PAIN/MARSHALL/CRAMPING Stop: 06/05/19 20:12 Prenat Multivit/[place]/Iron/Folic Ac ( Vitamin) 1 tab PO DAILY@08 [facility] Stop: 06/05/19 07:59 Last Admin: 05/06/19 08:15 Dose: 1 tab Documented by: <Juwan Topete MD, FACOG - Last Filed: 05/07/19 07:13> Co-Signing Physician Notes Resident Physician Supervision Note: I was present with Dr. Rubin during the history and exam. I discussed the case with the resident and agree with the findings and plan as documented in the note. Any exceptions or clarifications are listed here: [None] Documented By: Juwan Topete MD, FACOG Resident Activity Tracking <Caryn Choi DO - Last Filed: 05/07/19 07:13> Resident Involvement: Resident Care Provided Care Provided: OB Delivery
[2019-05-07] MEDS: DOCUSATE SODIUM 100 MG CAP PO SCH (07:37)
[2019-05-07] MEDS ORDERED: Nursing to Pharmacy Communication ONE (07:56)
[2019-05-07] MEDS ORDERED: FLINTSTONES COMPLETE CHEWABLE TAB PO SCH (09:00)
== END 2019-05-07 10:18 | disposition home or self-care (01) | DRG 807 ==
LOC: 4S2 18:57 → OPB 18:57 → 4S1 20:28 → 4S2 05-05 13:24